=== PATIENT | female | born 1985 | race Caucasian/White ===

== ENCOUNTER → 2020-04-09 09:11 | Outpatient (CLI) | payer OTHER, SELFPAY ==
[2020-04-09 09:35] LABS: COVID19 -Nasal RAPID Negative (Negative)
== END ==
PROVIDERS: Visit Provider Nurse Practitioner
DX: Z11.59 Encounter for screening for other viral diseases (principal)
CPT/HCPCS: 87635

== ENCOUNTER → 2023-12-01 16:20 | Outpatient (CLI) | payer BC, SELFPAY ==
--- NOTE | 2023-12-01 16:21 | DI.RAD.S_ITS ---
PROCEDURE: XR HAND RT MIN 3V INDICATIONS: R palmar 4th flexor injury TECHNIQUE: 3 views of the hand(s) acquired. COMPARISON: None. FINDINGS: Bones: No fractures or dislocations. Carpal bones are normally aligned. No suspicious bony lesions. Soft tissues: No suspicious soft tissue calcifications. IMPRESSION: No visualized acute fracture or dislocation. However, if clinical concern and/or pain persist, short interval imaging followup in 7-10 days is recommended, as occult injury cannot be definitively excluded. Dictated by: Patricia Osullivan M.D. on 12/01/2023 at 17:09 Approved by: Patricia Osullivan M.D. on 12/01/2023 at 17:09
== END ==
PROVIDERS: Referring Provider Student in an Organized Health Care Education/Training Program; Visit Provider Student in an Organized Health Care Education/Training Program
DX: S66.801A Unspecified injury of other specified muscles, fascia and tendons at wrist and hand level, right hand, initial encounter (principal); S63.614A Unspecified sprain of right ring finger, initial encounter; X58.XXXA Exposure to other specified factors, initial encounter
CPT/HCPCS: 73130